=== PATIENT | female | born 1990 | race American Indian/Alaskan Native ===

== ENCOUNTER 2020-07-09 17:08 | Emergency (ER) | payer SELFPAY ==
[2020-07-09 20:20] LABS: Bilirubin,Urine NEG (Negative); Blood,Urine NEG (Negative); Color,Urine Amber (Yellow); Mucus,Urine 3+ /HPF
[2020-07-09 20:32] LABS: HCG Qualitative,Urine Positive (Negative)
[2020-07-09] MEDS ORDERED: FAMOTIDINE 20 MG/2 ML INJ IV ONE (20:52)
[2020-07-09] MEDS ORDERED: METOCLOPRAMIDE 10 MG/2 ML INJ IV ONE (20:52)
[2020-07-09] MEDS ORDERED: LACTATED RINGERS 1,000 ML IV ONE (20:52)
[2020-07-09] MEDS ORDERED: diphenhydrAMINE 50 MG/ML VIAL IV ONE (20:52)
--- NOTE | 2020-07-09 20:56 | Emergency Department Report ---
ED General Adult HPI - General Chief complaint: Abdominal Pain Stated complaint: SOB/7 WEEKS STOMACH PAIN Time Seen by Provider: 07/09/20 19:38 Source: patient Mode of arrival: Ambulatory Limitations: No Limitations - History of Present Illness Initial comments: 30-year-old -[place] female patient presents with complaints of abdominal pain x3 days. She reports she had a positive test 2 days ago. She is A0. She denies any vaginal bleeding, vaginal discharge, dysuria/hematuria/urinary frequency, or diarrhea/constipation. She admits to nausea and vomiting only with attempted food intake, but denies any hematemesis /coffee-ground emesis. Patient also states when she eats her stomach hurts more and it makes her feel short of breath for movement. She denies any current shortness of breath, cough, or chest pain. No prior medical history per patient. - Related Data Previous Rx's Medication Instructions Recorded Last Taken Type Amoxicillin [Amoxicillin TAB] 875 mg PO BID #20 tablet 05/02/14 Unknown Rx Cyclobenzaprine [Flexeril 10mg] 10 mg PO BID PRN #20 tablet 05/02/14 Unknown Rx Naproxen [Naprosyn TAB] 375 mg PO BID #20 tablet 05/02/14 Unknown Rx Ibuprofen [Motrin 800 MG tab] 800 mg PO Q8HR PRN #20 tablet 06/28/16 Unknown Rx Metoclopramide [Reglan] 10 mg PO TID PRN #30 tab 07/09/20 Unknown Rx diphenhydrAMINE [Benadryl CAP] 25 mg PO Q8HR PRN #30 capsule 07/09/20 Unknown Rx Allergies Allergy/AdvReac Type Severity Reaction Status Date / Time shellfish derived Allergy Shortness Verified 07/09/20 17:29 of Breath ED Review of Systems ROS: Stated complaint: SOB/7 WEEKS STOMACH PAIN Other details as noted in HPI Constitutional: denies: chills, diaphoresis, fever, malaise, weakness ENT: denies: throat pain Respiratory: see HPI. denies: cough Cardiovascular: denies: chest pain Endocrine: denies: excessive sweating Gastrointestinal: abdominal pain, nausea, vomiting. denies: diarrhea, constipation, hematemesis, melena, hematochezia Genitourinary: denies: urgency, dysuria, frequency, hematuria, discharge, abnormal menses, dyspareunia Skin: denies: rash, change in color Neurological: denies: headache Hematological/Lymphatic: denies: swollen glands ED Past Medical Hx - Past Medical History Hx Asthma: Yes - Social History Smoking Status: Current Every Day Smoker Substance Use Type: Marijuana - Medications Home Medications: Home Medications Medication Instructions Recorded Confirmed Last Taken Type Amoxicillin [Amoxicillin TAB] 875 mg PO BID #20 tablet 05/02/14 Unknown Rx Cyclobenzaprine [Flexeril 10mg] 10 mg PO BID PRN #20 tablet 05/02/14 Unknown Rx Naproxen [Naprosyn TAB] 375 mg PO BID #20 tablet 05/02/14 Unknown Rx Ibuprofen [Motrin 800 MG tab] 800 mg PO Q8HR PRN #20 tablet 06/28/16 Unknown Rx Metoclopramide [Reglan] 10 mg PO TID PRN #30 tab 07/09/20 Unknown Rx diphenhydrAMINE [Benadryl CAP] 25 mg PO Q8HR PRN #30 capsule 07/09/20 Unknown Rx ED Physical Exam - General Limitations: No Limitations General appearance: alert, in no apparent distress - Head Head exam: Present: atraumatic, normocephalic - Eye Eye exam: Present: normal appearance. Absent: scleral icterus - Neck Neck exam: Present: normal inspection - Respiratory Respiratory exam: Present: normal lung sounds bilaterally. Absent: respiratory distress - Cardiovascular Cardiovascular Exam: Present: regular rate, normal rhythm. Absent: systolic murmur, diastolic murmur, rubs, gallop - GI/Abdominal GI/Abdominal exam: Present: soft, tenderness (Mild epigastric tenderness noted), normal bowel sounds. Absent: distended, guarding, rebound, rigid - Extremities Exam Extremities exam: Present: normal inspection - Back Exam Back exam: Present: normal inspection - Neurological Exam Neurological exam: Present: alert, oriented X3, normal gait - Psychiatric Psychiatric exam: Present: normal affect, normal mood - Skin Skin exam: Present: warm, dry, intact, normal color. Absent: rash ED Course Vital Signs 07/09/20 07/09/20 17:28 21:31 Temperature 98.3 F 98.2 F Pulse Rate 93 H 70 Respiratory 18 16 Rate Blood Pressure 119/71 Blood Pressure 126/70 [Right] O2 Sat by Pulse 100 100 Oximetry ED Medical Decision Making - Lab Data Result diagrams: 07/09/20 20:33 07/09/20 20:33 Lab Results 07/09/20 07/09/20 07/09/20 Range/Units 19:45 19:45 20:33 WBC 7.1 (4.5-11.0) K/mm3 RBC 4.99 (3.65-5.03) M/mm3 Hgb 13.4 (10.1-14.3) gm/dl Hct 39.3 (30.3-42.9) % MCV 79 (79-97) fl MCH 27 L (28-32) pg MCHC 34 (30-34) % RDW 12.8 L (13.2-15.2) % Plt Count 203 (140-440) K/mm3 Lymph % (Auto) 23.6 (13.4-35.0) % Long % (Auto) 11.6 H (0.0-7.3) % Eos % (Auto) 1.7 (0.0-4.3) % Baso % (Auto) 0.4 (0.0-1.8) % Lymph # (Auto) 1.7 (1.2-5.4) K/mm3 Long # (Auto) 0.8 (0.0-0.8) K/mm3 Eos # (Auto) 0.1 (0.0-0.4) K/mm3 Baso # (Auto) 0.0 (0.0-0.1) K/mm3 Seg Neutrophils % 62.7 (40.0-70.0) % Seg Neutrophils # 4.5 (1.8-7.7) K/mm3 Sodium (137-145) mmol/L Potassium (3.6-5.0) mmol/L Chloride (98-107) mmol/L Carbon Dioxide (22-30) mmol/L Anion Gap mmol/L BUN (7-17) mg/dL Creatinine (0.6-1.2) mg/dL Estimated GFR ml/min BUN/Creatinine Ratio % Glucose (65-100) mg/dL Calcium (8.4-10.2) mg/dL Total Bilirubin (0.1-1.2) mg/dL AST (5-40) units/L ALT (7-56) units/L Alkaline Phosphatase (35-129) units/L Total Protein (6.3-8.2) g/dL Albumin (3.9-5) g/dL Albumin/Globulin Ratio % Lipase (13-60) units/L HCG, Quant (0-4) mIU/mL Urine Color [place] (Yellow) Urine Turbidity Clear (Clear) Urine pH 6.0 (5.0-7.0) Ur Specific [place] 1.033 H (1.003-1.030) Urine Protein 100 mg/dl (Negative) mg/dL Urine Glucose (UA) Neg (Negative) mg/dL Urine Ketones 80 (Negative) mg/dL Urine Blood Neg (Negative) Urine Nitrite Neg (Negative) Urine Bilirubin Neg (Negative) Urine Urobilinogen 4.0 (<2.0) mg/dL Ur Leukocyte Esterase Neg (Negative) Urine WBC (Auto) 2.0 (0.0-6.0) /HPF Urine RBC (Auto) 12.0 (0.0-6.0) /HPF U Epithel Cells (Auto) 6.0 (0-13.0) /HPF Urine Mucus 3+ /HPF Urine HCG, Qual Positive A (Negative) 07/09/20 07/09/20 Range/Units 20:33 20:56 WBC (4.5-11.0) K/mm3 RBC (3.65-5.03) M/mm3 Hgb (10.1-14.3) gm/dl Hct (30.3-42.9) % MCV (79-97) fl MCH (28-32) pg MCHC (30-34) % RDW (13.2-15.2) % Plt Count (140-440) K/mm3 Lymph % (Auto) (13.4-35.0) % Long % (Auto) (0.0-7.3) % Eos % (Auto) (0.0-4.3) % Baso % (Auto) (0.0-1.8) % Lymph # (Auto) (1.2-5.4) K/mm3 Long # (Auto) (0.0-0.8) K/mm3 Eos # (Auto) (0.0-0.4) K/mm3 Baso # (Auto) (0.0-0.1) K/mm3 Seg Neutrophils % (40.0-70.0) % Seg Neutrophils # (1.8-7.7) K/mm3 Sodium 133 L (137-145) mmol/L Potassium 3.8 (3.6-5.0) mmol/L Chloride 99.2 (98-107) mmol/L Carbon Dioxide 21 L (22-30) mmol/L Anion Gap 17 mmol/L BUN 8 (7-17) mg/dL Creatinine 0.6 (0.6-1.2) mg/dL Estimated GFR > 60 ml/min BUN/Creatinine Ratio 13 % Glucose 88 (65-100) mg/dL Calcium 10.0 (8.4-10.2) mg/dL Total Bilirubin 0.30 (0.1-1.2) mg/dL AST 14 (5-40) units/L ALT 9 (7-56) units/L Alkaline Phosphatase 61 (35-129) units/L Total Protein 8.1 (6.3-8.2) g/dL Albumin 4.3 (3.9-5) g/dL Albumin/Globulin Ratio 1.1 % Lipase 17 (13-60) units/L HCG, Quant 22615 H (0-4) mIU/mL Urine Color (Yellow) Urine Turbidity (Clear) Urine pH (5.0-7.0) Ur Specific [place] (1.003-1.030) Urine Protein (Negative) mg/dL Urine Glucose (UA) (Negative) mg/dL Urine Ketones (Negative) mg/dL Urine Blood (Negative) Urine Nitrite (Negative) Urine Bilirubin (Negative) Urine Urobilinogen (<2.0) mg/dL Ur Leukocyte Esterase (Negative) Urine WBC (Auto) (0.0-6.0) /HPF Urine RBC (Auto) (0.0-6.0) /HPF U Epithel Cells (Auto) (0-13.0) /HPF Urine Mucus /HPF Urine HCG, Qual (Negative) - Medical Decision Making 30-year-old -[place] female patient presents with complaints of abdominal pain x3 days. She reports she had a positive test 2 days ago. She is A0. She denies any vaginal bleeding, vaginal discharge, dysuria/hematuria/urinary frequency, or diarrhea/constipation. She admits to nausea and vomiting only with attempted food intake, but denies any hematemesis/coffee-ground emesis. Patient also states when she eats her stomach hurts more and it makes her feel short of breath for movement. She denies any current shortness of breath, cough, or chest pain. No prior medical history per patient. No significant abnormalities are noted on labs. Ultrasound shows 5-week 3-day IUP. Her vitals are normal, she is tolerating fluids orally without difficulty, she is stable for discharge home. Referral for LEASING MANAGER given and recommend follow-up within 3 to 5 days. Strict return precautions were discussed in detail with patient who verbalized understanding. Critical care attestation.: If time is entered above; I have spent that time in minutes in the direct care of this critically ill patient, excluding procedure time. ED Disposition Clinical Impression: Hyperemesis gravidarum Abdominal pain in Qualifiers: Trimester: first trimester Qualified Code(s): O26.891 - Other specified related conditions, first trimester; R10.9 - Unspecified abdominal pain Disposition: TO HOME OR SELFCARE Is pt being admited?: No Condition: Stable Instructions: Abdominal Pain (ED), Abdominal Pain During , Hyperemesis Gravidarum Prescriptions: diphenhydrAMINE [Benadryl CAP] 25 mg PO Q8HR PRN #30 capsule PRN Reason: Nausea Metoclopramide [Reglan] 10 mg PO TID PRN #30 tab PRN Reason: Nausea Referrals: JONN ROJAS MD [Primary Care Provider] - 3-5 Days [facility] [Provider Group] - 3-5 Days
[2020-07-09 20:57] LABS: Basophils % (Auto) 0.4 % (0.0-1.8); Eosinophils # (Auto) 0.1 K/mm3 (0.0-0.4); Eosinophils % (Auto) 1.7 % (0.0-4.3); Hematocrit 39.3 % (30.3-42.9); Hemoglobin 13.4 gm/dl (10.1-14.3); Lymphocytes # (Auto) 1.7 K/mm3 (1.2-5.4); Lymphocytes % (Auto) 23.6 % (13.4-35.0); Mean Corpuscular HGB Conc 34 % (30-34); Mean Corpuscular Volume 79 fl (79-97); Monocytes # (Auto) 0.8 K/mm3 (0.0-0.8); Monocytes % (Auto) 11.6 % (0.0-7.3); Platelet Count 203 K/mm3 (140-440); Red Blood Count 4.99 M/mm3 (3.65-5.03); Red Cell Distribution Width 12.8 % (13.2-15.2)
[2020-07-09 21:11] LABS: Alanine Aminotransferase 9 units/L (7-56); Albumin 4.3 g/dL (3.9-5); Blood Urea Nitrogen 8 mg/dL (7-17); Hemolysis Index 4
[2020-07-09 21:20] LABS: BUN/Creatinine Ratio 13
[2020-07-09 22:55] VITALS: BP 126/70
--- NOTE | 2020-07-09 23:42 | Ultrasound Report ---
EXAMINATION: Obstetrical Ultrasound INDICATION: Abdominal pain in early COMPARISON: None FINDINGS: There is a single, living intrauterine . [place]-rump length = 0.3 cm = 5 weeks, 6 day(s). heart rate is 111 beats per minute. The bilateral adnexal regions appear within normal limits. There is a trace amount of free pelvic fl uid. IMPRESSION: 1. Single living intrauterine with details as above. Signer Name: Anne Garcia MD Signed: 07/09/2020 11:38 PM Workstation Name: [id number]
--- NOTE | 2020-07-09 23:42 | Ultrasound Report ---
EXAMINATION: Obstetrical Ultrasound INDICATION: Abdominal pain in early COMPARISON: None FINDINGS: There is a single, living intrauterine . [place]-rump length = 0.3 cm = 5 weeks, 6 day(s). heart rate is 111 beats per minute. The bilateral adnexal regions appear within normal limits. There is a trace amount of free pelvic fl uid. IMPRESSION: 1. Single living intrauterine with details as above. Signer Name: Anne Garcia MD Signed: 07/09/2020 11:38 PM Workstation Name: [id number]
== END 2020-07-10 00:20 | disposition home or self-care (01) ==
LOC: ED 17:08
DX: O21.0 Mild hyperemesis gravidarum (principal); J44.9 Chronic obstructive pulmonary disease, unspecified; O99.331 Smoking (tobacco) complicating pregnancy, first trimester; Z3A.00 Weeks of gestation of pregnancy not specified; Z79.899 Other long term (current) drug therapy
CPT/HCPCS: 36415; 76801; 76817; 80053; 81001; 81025; 83690; 84702; 85025; 96361; 96374; 96375; 99284; J1200; J2765; J7120

== ENCOUNTER 2021-09-28 17:12 | Emergency (ER) | payer MEDICAID ==
[2021-09-28 17:35] VITALS: BP 125/69
--- NOTE | 2021-09-28 17:52 | Emergency Department Report ---
ED Extremity Problem HPI - General Chief complaint: Extremity Problem,Nontraumatic Stated complaint: FEET/LEGS SWOLLEN Time Seen by Provider: 09/28/21 17:32 Source: patient Mode of arrival: Ambulatory Limitations: No Limitations - History of Present Illness Initial comments: Patient presents with dependent edema. She has had swelling in the feet and an kles for several days. Is progressively worsened. When she walks, she states that she feels like she has fluid in her feet and ankles. Her skin feels tight. She has no chest pain or shortness of breath. She admits that she has gained approximately 60 pounds recently. She has been eating salt. She has been sitting around at home and not exercising. She does not know if those factors contribute. She has no unilateral leg swelling or edema. Severity scale (0 -10): 10 - Related Data Previous Rx's Medication Instructions Recorded Last Taken Type Amoxicillin [Amoxicillin TAB] 875 mg PO BID #20 tablet 05/02/14 Unknown Rx Cyclobenzaprine [Flexeril 10mg] 10 mg PO BID PRN #20 tablet 05/02/14 Unknown Rx Naproxen [Naprosyn TAB] 375 mg PO BID #20 tablet 05/02/14 Unknown Rx Ibuprofen [Motrin 800 MG tab] 800 mg PO Q8HR PRN #20 tablet 06/28/16 Unknown Rx Metoclopramide [Reglan] 10 mg PO TID PRN #30 tab 07/09/20 Unknown Rx diphenhydrAMINE [Benadryl CAP] 25 mg PO Q8HR PRN #30 capsule 07/09/20 Unknown Rx Furosemide [Lasix TAB] 40 mg PO QDAY #15 tablet 09/28/21 Unknown Rx Potassium Chloride [K-Dur] 20 meq PO BID #30 tab 09/28/21 Unknown Rx Allergies Allergy/AdvReac Type Severity Reaction Status Date / Time shellfish derived Allergy Shortness Verified 09/28/21 17:36 of Breath ED Review of Systems ROS: Stated complaint: FEET/LEGS SWOLLEN Other details as noted in HPI Comment: All other systems reviewed and negative Constitutional: denies: fever Eyes: denies: eye pain ENT: denies: throat pain Respiratory: denies: cough Cardiovascular: denies: chest pain Endocrine: unexplained weight gain Gastrointestinal: denies: abdominal pain Genitourinary: denies: dysuria Musculoskeletal: denies: back pain Skin: denies: rash Neurological: denies: headache Hematological/Lymphatic: denies: easy bruising ED Past Medical Hx - Past Medical History Hx Asthma: Yes - Family History Family history: asthma - Social History Smoking Status: Never Smoker Substance Use Type: None - Medications Home Medications: Home Medications Medication Instructions Recorded Confirmed Last Taken Type Amoxicillin [Amoxicillin TAB] 875 mg PO BID #20 tablet 05/02/14 09/28/21 Unknown Rx Cyclobenzaprine [Flexeril 10mg] 10 mg PO BID PRN #20 tablet 05/02/14 09/28/21 Unknown Rx Naproxen [Naprosyn TAB] 375 mg PO BID #20 tablet 05/02/14 09/28/21 Unknown Rx Ibuprofen [Motrin 800 MG tab] 800 mg PO Q8HR PRN #20 tablet 06/28/16 09/28/21 Unknown Rx Metoclopramide [Reglan] 10 mg PO TID PRN #30 tab 07/09/20 09/28/21 Unknown Rx diphenhydrAMINE [Benadryl CAP] 25 mg PO Q8HR PRN #30 capsule 07/09/20 09/28/21 Unknown Rx Furosemide [Lasix TAB] 40 mg PO QDAY #15 tablet 09/28/21 Unknown Rx Potassium Chloride [K-Dur] 20 meq PO BID #30 tab 09/28/21 Unknown Rx ED Physical Exam - General Limitations: No Limitations, Other (Pulse ox noted and normal) General appearance: alert, in no apparent distress - Head Head exam: Present: atraumatic, normocephalic - Eye Eye exam: Present: normal appearance, EOMI - ENT ENT exam: Present: normal external ear exam - Neck Neck exam: Present: normal inspection. Absent: meningismus - Respiratory Respiratory exam: Present: normal lung sounds bilaterally. Absent: respiratory distress - Cardiovascular Cardiovascular Exam: Present: regular rate, normal rhythm - GI/Abdominal GI/Abdominal exam: Present: soft. Absent: tenderness - Extremities Exam Extremities exam: Present: normal capillary refill, pedal edema (3+ bilateral) - Back Exam Back exam: Absent: CVA tenderness (R), CVA tenderness (L) - Neurological Exam Neurological exam: Present: alert, oriented X3, CN II-XII intact, normal gait - Psychiatric Psychiatric exam: Present: normal affect, normal mood - Skin Skin exam: Present: warm, dry ED Course Vital Signs 09/28/21 09/28/21 17:26 17:34 Temperature 98.3 F 97.6 F Pulse Rate 81 71 Respiratory 18 20 Rate Blood Pressure 126/73 Blood Pressure 125/69 [Right] O2 Sat by Pulse 99 100 Oximetry - Reevaluation(s) Reevaluation #1: 09/28/21 18:51 Patient presents with dependent edema and was discharged ED Medical Decision Making - Medical Decision Making Patient presents with dependent edema bilaterally. There is no unilateral edema suggestive of DVT. She does not have dyspnea or orthopnea. There is no evidence of abnormal breath sounds. I am not concerned for overt congestive heart failure. We discussed lifestyle and dietary changes. We discussed exercise. We discussed YAYA colin. I do believe diuresis and outpatient follow- up would be appropriate. She is amenable to this. Critical Care Time: No Critical care attestation.: If time is entered above; I have spent that time in minutes in the direct care of this critically ill patient, excluding procedure time. ED Disposition Clinical Impression: Dependent edema, Referred by health home care specialist Disposition: 01 HOME / SELF CARE / HOMELESS Is pt being admited?: No Condition: Stable Instructions: Sequential Compression Device, Peripheral Edema Additional Instructions: Elevate the feet. Do not eat salt. Return for problems. Apply compressive stockings to wear. Follow-up with the referral doctor for recheck. Prescriptions: Potassium Chloride [K-Dur] 20 meq PO BID #30 tab Furosemide [Lasix TAB] 40 mg PO QDAY #15 tablet Referrals: DEVANTE HEREDIA MD [Staff Physician] - 3-5 Days
== END 2021-09-28 18:15 | disposition home or self-care (01) ==
LOC: ED 17:12
DX: R60.9 Edema, unspecified (principal); J45.909 Unspecified asthma, uncomplicated; Z91.013 Allergy to seafood
CPT/HCPCS: 99282